=== PATIENT | female | born 1990 | race Caucasian/White ===

== ENCOUNTER 2018-06-17 09:05 | Inpatient (IN) | payer OTHER ==
[2018-06-17] MEDS ORDERED: Buffered Lidocaine 0.9% SYRIN* 5 ML/SYR SYRINGE ONE (11:02)
[2018-06-17] MEDS ORDERED: HYDROmorphone INJ* 0.5 MG/0.5 ML SYRINGE IV PRN (11:14)
[2018-06-17] MEDS ORDERED: DiMENhydriNATE IV* 50 MG/ML VIAL IV PUSH PRN (11:14)
[2018-06-17] MEDS ORDERED: Acetaminophen IV 1GM/100ML * 1,000 MG/100 ML VIAL IVPB ONE (11:14)
[2018-06-17] MEDS ORDERED: Sodium Citrate/Citric Acid* 15 ML UDC ONE (11:17)
[2018-06-17] MEDS ORDERED: ceFOXitin 2 GM IVPREMIX* 0 GM/0 ML BAG ONE (11:18)
[2018-06-17] MEDS ORDERED: ceFAZolin 2 GM PREMIX in ORs 2 GM/50 ML BAG IVPB ONE (11:22)
[2018-06-17] MEDS ORDERED: Morphine PF AMP (0.5MG/ML)* 5 MG/10 ML AMP ONE (13:02)
[2018-06-17] MEDS ORDERED: OXYTOCIN* 10 UNITS/ML 1 ML VIAL ONE (13:04)
[2018-06-17] MEDS ORDERED: Ondansetron INJ* 2 MG/ML VIAL ONE (13:04)
[2018-06-17] MEDS ORDERED: Ketorolac INJ* 30 MG/ML 1 ML VIAL ONE (13:04)
[2018-06-17] MEDS ORDERED: Lidocaine 2% PF * 5 ML VIAL ONE (13:14)
[2018-06-17] MEDS ORDERED: Bupivacaine-MPF SPINAL* 7.5 MG/ML - 2ML AMP ONE (13:14)
[2018-06-17] MEDS ORDERED: Naloxone* 0.4 MG/ML 1 ML VIAL IV PRN (13:55)
[2018-06-17] MEDS ORDERED: Nalbuphine* 10 MG/ML 1 ML VIAL IV PRN (13:55)
[2018-06-17] MEDS ORDERED: Ondansetron INJ* 2 MG/ML VIAL IV PRN (13:55)
[2018-06-17] MEDS ORDERED: oxyCODONE/Acetamin 5/325 MG* TAB PO PRN (13:58)
[2018-06-17] MEDS ORDERED: EPHEDrine (Pressors)* 50 MG/ML VIAL ONE (14:08)
[2018-06-17] MEDS ORDERED: Zolpidem TAB* 5 MG PO PRN (14:39)
[2018-06-17] MEDS ORDERED: Witch Hazel PAD* JAR TOPICAL PRN (14:39)
[2018-06-17] MEDS ORDERED: Dibucaine 1% 28.35 GM TUBE PR PRN (14:39)
[2018-06-17] MEDS ORDERED: Glycerin ADULT SUPP PR PRN (14:39)
[2018-06-18] MEDS: Ibuprofen TAB* 600 MG PO SCH ×2 (00:19→08:03)
[2018-06-18] MEDS: Docusate CAP* 100 MG PO SCH ×4 (00:20→21:00)
[2018-06-18] MEDS: Simethicone TAB* 80 MG TAB.CHEW PO SCH ×6 (00:20→21:01)
[2018-06-18] MEDS ORDERED: Acetaminophen TAB* 325 MG PO PRN (05:55)
[2018-06-18] MEDS ORDERED: oxyCODONE/Acetamin 5/325 MG* TAB PO PRN ×2 (05:55)
--- NOTE | 2018-06-18 06:35 | OP ---
DATE OF PROCEDURE: 06/17/18 - ROOM #111 DATE OF : 89 SURGEON: Dr. Mast. NATIONAL SALES DIRECTOR: Zoya Moreira CNM PRE-OP DIAGNOSES: Intrauterine gestation at 39+ weeks gestational age, prior section, declined trials of labor after section. POST-OP DIAGNOSES: Intrauterine gestation at 39+ weeks gestational age, prior section, declined trials of labor after section. OPERATIVE PROCEDURE: Repeat low transverse section. EBL: 600 mL. FLUIDS: Crystalloid. FINDINGS: Female , weight 8 pounds 10 ounces. Apgars of 8 and 9. Normal appearing uterus, ovaries, and tubes. Normal appearing placenta. Counts were all correct. DESCRIPTION OF PROCEDURE: After informed consent was signed, the patient was taken to the operating room where she was given spinal anesthesia, was found to be adequate. She was prepped and draped in the dorsal supine position with a leftward tilt. A Pfannenstiel skin incision was made with a scalpel and carried down to the underlying layer of fascia. The fascia was incised on either side of the midline and the fascial incision was extended laterally with a combination of sharp and blunt dissection. Inferior edge of the fascial incision was grasped with Colby clamps, tented up and dissected down with sharp dissection and the superior edge of the fascial incision was grasped with Colby clamps, tented up and dissected down with sharp dissection. The rectus muscles were in the midline and the peritoneum was entered bluntly. The peritoneal incision was extended laterally with blunt pressure. A bladder blade was inserted and a transverse incision was made in the lower uterine segment with the scalpel. The incision was extended superiorly and inferiorly with blunt pressure. The 's head was delivered with fundal massage followed by the shoulders and the rest of the body. The cord was milked towards the baby and then clamped x2 and cut. The baby was handed to the static balancer. Cord blood was collected. The placenta then delivered with gentle cord traction and fundal massage. The uterus was then exteriorized and cleared of all clots and debris. The uterine incision was closed with 0 Vicryl in a running lock fashion with a second layer of suture imbricating the first. The abdomen was irrigated. The uterus was then placed back into the abdominal cavity and good hemostasis was noted along the length of the uterine incision. The peritoneum was closed with 3-0 Vicryl in a running unlocked fashion. The fascia was closed with 0 Vicryl in a running unlocked fashion. Subcuticular layer was irrigated and good hemostasis was noted. 3-0 Vicryl was then used to place 5 interrupted sutures in the subcuticular layer to reapproximate it. The skin was then closed with 4-0 Monocryl in a running subcuticular fashion. The incision was cleaned. Mastisol and Steri-Strips were placed. The dressing was placed. The patient was cleaned, move to the stretcher and taken to the recovery room in stable condition. [id number]/[facility] #: [id number] [place]
[2018-06-18 08:15] LABS: ABS Basophils 0 10^3/ul (0-0.2); ABS Eosinophils 0.1 10^3/ul (0-0.6); ABS Lymphocytes 2.6 10^3/ul (1.0-4.8); ABS Monocytes 0.5 10^3/ul (0-0.8); ABS Neutrophils 6.9 10^3/ul (1.5-7.7); ABS Nucleated RBC 0 10^3/ul; Hematocrit 31 % (35-47); Hemoglobin 10.7 g/dl (12.0-16.0); Lymphocyte % 25.9 % (25-47); Mean Corpuscular HGB Conc 35 g/dl (31-36); Mean Corpuscular Hemoglobin 32 pg (27-31); Mean Corpuscular Volume 93 fL (80-97); Mean Platelet Volume 7.8 fL (7.4-10.4); Nucleated Red Blood Cells % 0.1; Platelet Count 156 10^3/ul (150-450); Red Blood Count 3.31 10^6/ul (4.00-5.40); Red Cell Distribution Width 13 % (10.5-15); White Blood Count 10.2 10^3/ul (3.5-10.8)
[2018-06-18] MEDS ORDERED: Ferrous Gluconate TAB* 324 MG TAB PO SCH (09:00)
[2018-06-18] MEDS: Ibuprofen TAB* 600 MG PO PRN ×2 (14:19→21:04)
[2018-06-19 08:26] VITALS: BP 149/68
[2018-06-19] MEDS: Docusate CAP* 100 MG PO SCH (08:27)
[2018-06-19] MEDS: Ibuprofen TAB* 600 MG PO PRN (08:27)
[2018-06-19] MEDS: Simethicone TAB* 80 MG TAB.CHEW PO SCH (08:27)
[2018-06-19] MEDS ORDERED: Measles, Mumps,Rubella VACC* 0.5 ML/VIAL ONE (11:01)
== END 2018-06-19 12:00 | disposition home or self-care (01) | DRG 540 ==
LOC: MCHOB 09:05
PROVIDERS: ADMIT Obstetrics & Gynecology; ATTEND Obstetrics & Gynecology
PROC: 10D00Z1 Extraction of Products of Conception, Low, Open Approach (ICD-10-PCS; 2018-06-17)
PROC: 4A1HXCZ Monitoring of Products of Conception, Cardiac Rate, External Approach (ICD-10-PCS; principal; 2018-06-17 11:00)
DX: O34.211 Maternal care for low transverse scar from previous cesarean delivery (principal); O24.420 Gestational diabetes mellitus in childbirth, diet controlled; O99.284 Endocrine, nutritional and metabolic diseases complicating childbirth; E28.2 Polycystic ovarian syndrome; Z3A.39 39 weeks gestation of pregnancy; Z37.0 Single live birth
CPT/HCPCS: 36415; 85025; 90707; A9270-GY; J0690; J0694; J1885; J2405; J2590